=== PATIENT | female | born 2000 | race Caucasian/White ===

== ENCOUNTER 2023-05-01 22:46 | Emergency (ER) | payer OTHER, SELFPAY ==
[2023-05-01 22:51] VITALS: BP 112/70; PULSE 67; RESP 18; TEMP 36.8; O2SAT 98; BMI 28.3
[2023-05-01 23:23] LABS: Bacteria Urine None Seen; Culture Indicated Urine Cult Not Indicated; RBC Urine >100/HPF (0-5/HPF); Squamous Epithelial Cell Urine 0-1 /HPF (0-5/HPF); WBC Urine 0-1/HPF (0-5/HPF)
--- NOTE | 2023-05-02 01:42 | PC.NURSE ---
Patient not in lobby at this time when called for a room. Registration staff report patient LWBS earlier. Unknown what time exactly patient left ED.
== END 2023-05-02 01:19 | disposition left against medical advice (07) ==
PROVIDERS: Emergency Provider Emergency Medicine
DX: N93.9 Abnormal uterine and vaginal bleeding, unspecified (principal)
CPT/HCPCS: 81003; 81015; 81025; 99282